=== PATIENT | female | born 1965 | race Caucasian/White ===

== ENCOUNTER 2025-04-24 17:39 | Emergency (ER) | payer OTHER, SELFPAY ==
[2025-04-24 17:52] VITALS: BP 177/80; PULSE 61; RESP 16; TEMP 35.9; O2SAT 96; BMI 30.7
--- NOTE | 2025-04-24 18:35 | ED.GENADULT ---
HPI - General Adult General Date Seen: 04/24/25 Chief complaint: Dental/Oral/Mouth Injury/Pain Stated complaint: tooth pain Time Seen by Provider: 04/24/25 18:29 History of Present Illness HPI narrative: 59-year-old female presenting for dental pain affecting her right. She has been having dental pain for the past several days and has an appointment to have a root canal done in 2 days, on on Saturday. She has been trying to manage her pain with alternating doses of Tylenol ibuprofen, but today her pain got worse and then those medications are no longer adequate. She has been working at with an adult daughters and has already had 1st procedure on couple of her teeth with some dental implants. She has an appointment in 2 days, on Saturday to get root canals. She notes that since yesterday her pain just been a lot worse of the molars on both her right upper and lower jaw. She does not have any facial swelling or jaw swelling. No swelling inside of her mouth. No drainage. No known injury. No fever. No sore throat. No trouble swallowing. She came here to the ER desiring stronger pain meds because her a Tylenol and ibuprofen just are not helping. She has no history of diabetes or immunosuppression. Related Data Home Medications ?Medication ?Instructions ?Recorded ?Confirmed escitalopram oxalate .ROUTE 04/24/25 Allergies Allergy/AdvReac Type Severity Reaction Status Date / Time No Known Drug Allergies Allergy Verified 04/24/25 17:55 Exam Narrative: Exam Narrative: Constitutional: Appears well-developed and well-nourished. Alert. Conversant. Non toxic. HENT: Head: Atraumatic. Nose: Nose normal. Mouth/Throat: Oral mucosa is clear . Mucous membranes are moist. no trismus. Pharynx normal. Tonsils symmetric. No tonsillar enlargement, erythema, or exudate. No trismus. No submandibular swelling. She has feelings and multiple other of her molars. I do not see any gingival erythema or swelling around her molars on the maxillary or mandibular right side or on the left side. No submandibular swelling. No signs of gingival abscess. No submandibular infection. No facial swelling or buccal space abscess. No trismus. Eyes: Conjunctivae normal. EOM normal. Pupils equal, round, and reactive to light. No scleral icterus. Neck: Normal range of motion. Neck supple. No tracheal deviation present. Cardiovascular: Normal rate, regular rhythm. Normal cap refill Pulmonary/Chest: Effort normal. No stridor. No respiratory distress. No wheezes. No rales. No rhonchi . Musculoskeletal: RUE: Normal range of motion. No tenderness. No deformity LUE: Normal range of motion. No tenderness. No deformity RLE: Normal range of motion. No edema. No tenderness. No deformity LLE: Normal range of motion. No edema. No tenderness. No deformity Lymph: No cervical adenopathy. Neurological: Alert and oriented to person, place, and time. Normal strength. CN II-VII intact. No sensory deficit. GCS eye subscore is 4. GCS verbal subscore is 5. GCS motor subscore is 6. Normal coordination Skin: Skin is warm and dry. No rash noted. No pallor. Normal capillary refill. Psychiatric: Normal mood. Normal affect. Const: Vital Signs, click to edit/add: Vital Signs - 24 hr 04/24/25 17:52 Temperature 96.6 F L Pulse Rate [Pulse Oximeter] 61 Respiratory Rate 16 Blood Pressure [Ri ght Upper Arm] 177/80 H Pulse Oximetry 96 Oxygen Delivery Me thod Room Air Course Vital Signs Vital signs: Initial Vital Signs Temperature 96.6 F L 04/24/25 17:52 Temperature Source Temporal Artery Scan 04/24/25 17:52 Pulse Rate 61 04/24/25 17:52 Respiratory Rate 16 04/24/25 17:52 Blood Pressure 177/80 H 04/24/25 17:52 Blood Pressure Mean 112 H 04/24/25 17:52 Blood Pressure Position Sitting 04/24/25 17:52 Pulse Oximetry 96 04/24/25 17:52 Oxygen Delivery Method Room Air 04/24/25 17:52 Vital Signs Temperature 96.6 F L 04/24/25 17:52 Pulse Rate 61 04/24/25 17:52 Respiratory Rate 16 04/24/25 17:52 Blood Pressure 177/80 H 04/24/25 17:52 Pulse Oximetry 96 04/24/25 17:52 Oxygen Delivery Method Room Air 04/24/25 17:52 Temperature 96.6 F L 04/24/25 17:52 Pulse Rate 61 04/24/25 17:52 Respiratory Rate 16 04/24/25 17:52 Blood Pressure 177/80 H 04/24/25 17:52 Pulse Oximetry 96 04/24/25 17:52 Oxygen Delivery Method Room Air 04/24/25 17:52 Medical Decision Making MDM Narrative Medical decision making narrative: This patient presents with a tooth ache. The differential diagnosis includes: cracked tooth syndrome, pulpitis, sub-apical abscess, amongst others. There is no abscess detected around the tooth amenable to incision and drainage. There is no evidence of buccinator/canine space infections, significant facial swelling, or Samuel's angina. There are no posterior pharyngeal space infections detected. Suspect pulpitis. Treatment with NSAID, antibiotics. Follow up with a dentist/swatch folder in the coming days is indicated for further work up and treatment. She indicates that she already has an appointment for an root canal on Saturday. Instructions for return to the ER were reviewed with the patient. Instymeds prescription for amoxicillin 1000 mg p.o. b.i.d. for 10 days. Instymeds prescription for Percocet-10 tablets. Opiate precautions reviewed Discharge Plan Discharge Clinical Impression: Pain, dental, Jaw pain, non-TMJ Patient Disposition: Home, Self-Care Condition: Stable Instructions: Toothache (ED) Additional Instructions: As we discussed, please come back to the ER right away if you have worsening or severe pain, swelling your face around her jaw, high fever. It is very important for you to see your and dentist on Saturday for recheck. Please start on the antibiotics today to try to help prevent any worsening infection. Take the antibiotic (amoxicillin) twice a day for 10 days or until your and dentist cause you to stop. For pain control you should continue use Tylenol and ibuprofen 1st. Use the prescription pain killer (Percocet) if needed. Use caution, because prescription pain killers can cause dizziness, drowsiness, constipation, and can be addictive. Do not drive for 6 hours after taking a prescription pain killer. Prescriptions: No Action escitalopram oxalate .ROUTE Stand Alone Forms: [employer] Info Instructions
--- OUTSIDE RECORDS SUMMARY | 2025-04-24 19:19 | XMS_ITS | Encounter Summary ---
Author Organization [facility] Address [address] [place] [address]. [place] [address] Care Team Providers Care Head Of English Name Role Phone Tammy Trinh PA-C Unavailable [phone] Tammy Trinh PA-C Primary Care Provider [phone] Tino Vincent MD Unavailable Encounter Details DateTypeDepartmentCare Team (Latest Contact Info)Zogcmceddyf63/02/2025Travel Social History Tobacco UseTypesPacks/DayYears UsedDateSmoking Tobacco: NeverPassive Smoke Exposure: NeverSmokeless Tobacco: NeverAlcohol UseStandard Drinks/WeekComments Yes0 (1 standard drink = 0.6 oz pure alcohol)1-2 drinks a week.PHQ-2AnswerDate RecordedPHQ-2 Wyuum43505/31/2024[facility] [place] [facility] - Occupational Stress QuestionnaireAnswerDate RecordedDo you feel stress - tense, restless, nervous, or anxious, or unable to sleep at night because yourmind is troubled all the time - these days?Only a oswtte3003/30/2025Exercise Vital Sign AnswerDate RecordedOn average, how many days per week do you engage in moderate to strenuous exercise (like a brisk walk)?2 days03/30/2025On average, how many minutes do you engage in exercise at this level?10 min03/30/2025dolescent EducationAnswerDate RecordedGetting School Help NeededNot on file02/10/2023 Social ConnectionsAnswerDate RecordedHow often do you feel lonely or isolated from those around you?Tvollunwh17/02/2025Food InsecurityAnswerDate Recorded Within the past 12 months, did you worry that your food would run out before you got money to buy more?No03/30/2025Within the past 12 months, did the food you bought just not last and you didn???t have money to getmore?No03/30/2025Housing StabilityAnswerDate RecordedDo you have housing? (Housing is defined as stable permanent housing and does not include staying outside in a car, in a tent, in an abandoned building, in an overnight senior care, or couch-surfing.)Yes03/30/2025 Are you worried about losing your housing?No03/30/2025Financial Resource Strain AnswerDate RecordedWithin the past 12 months, have you or your family members you live with been unable to get utilities (heat, electricity) when it was really needed?No03/30/2025Transportation NeedsAnswerDate RecordedWithin the past 12 months, has lack of transportation kept you from medical appointments, getting your medicines, non-medical meetings or appointments, work, or from getting things that you need?No03/30/2025Interpersonal SafetyAnswerDate Recorded Do you feel physically and emotionally safe where you currently live?Yes 03/25/2024Within the past 12 months, have you been hit, slapped, kicked or otherwise physically hurt by someone?No03/25/2024Within the past 12 months, have you been humiliated or emotionally abused in other ways by your partner or ex-partner?No03/25/2024CommentsNoSex and Gender InformationValueDate RecordedSex Assigned at BirthNot on fileLegal DtjVbiysj02/04/2012 3:09 AM ENTRY LEVEL ACCOUNT MANAGER Gender IdentityNot on fileSexual OrientationNot on fileOccupationIndustryJob Start DateJob End DateProject ManagerNot on fileNot on fileNot on filedocumented as of this encounter Plan of Treatment DateTypeDepartmentCare Team (Latest Contact Info)Lbjqykpjrkt45/16/2026 7:30 AM CSTOffice Visit [facility] [address] [place] [address] Tammy Trinh PA-C [address] [place] [address] documented as of this encounter Visit Diagnoses Not on filedocumented in this encounter Additional Health Concerns AssessmentNoted TimePHQ-9 Depression Total Score: 9:57 AM ENTRY LEVEL ACCOUNT MANAGER documented as of this encounter Care Teams Team MemberRelationshipSpecialtyStart DateEnd Date Tammy Trinh PA-C [address] [place] [address] PCP - GeneralFamily Medicine08/08/22 Tammy Trinh PA-C [address] [place] [address] Assigned PCP07/07/22 Tino Vincent MD [address] [place] [id number] JQSawycvanwhr98/31/23documented as of this encounter
--- OUTSIDE RECORDS SUMMARY | 2025-04-24 19:19 | XMS_ITS | Clinical Summary ---
Author Organization [facility] Address [address] [place] [address] Care Team Providers Care Waste Collector Name Role Phone Tammy Trinh PA-C Unavailable [phone] Tammy Trinh PA-C Primary Care Provider [phone] Tino Vincent MD Unavailable Allergies No known active allergies Medications MedicationSigDispense QuantityRefillsLast FilledStart DateEnd DateStatus Cholecalciferol (VITAMIN D) 400 UNITS capsule Take by mouth daily 30 capsule 12/01/2014ctive Ascorbic Acid (VITAMIN C) 500 MG CHEW Active zinc gluconate 50 MG tablet Take 50 mg by mouth dailyActive fish oil-omega-3 fatty acids 1000 MG capsule Take 2 g by mouth dailyActive MAGNESIUM GLYCINATE PLUS PO Active vitamin (B COMPLEX-C) tablet Take 1 tablet by mouth dailyActive multivitamin w/minerals (THERA-VIT-M) tablet Take 1 tablet by mouth dailyActive escitalopram (LEXAPRO) 20 MG tablet Indications:Generalized anxiety disorder,Moderate episode of recurrent major depressive disorder (H)Take 1 tablet (20 mg) by mouth daily. 90 tablet ctive acyclovir (ZOVIRAX) 200 MG capsule Indications:Herpes simplex vulvovaginitisTake 1 capsule (200 mg) by mouth daily 90 capsule /iscontinued Active Problems ProblemNoted DateDiagnosed DatePrimary nxvqdmqa45/02/2024 Assessment & Plan (08/29/2023 2:59 PM CDT): He has trouble sleeping and is tired in the day. This is worse now but predates her current illness. Discussed. [employer] database. Refer Elevated fasting vbwbljp7702/27/2023 Overview (02/27/2023): 02/26/23: glucose 109 Generalized anxiety mtfiocca47/07/2023Moderate episode of recurrent major depressive fiuviyyb00/10/2023CP (advance care planning)02/09/2020Herpes owpuuotei03/05/2015 Resolved Problems ProblemNoted DateDiagnosed DateResolved PuwlMbsgkfazpd53 Assessment & Plan (08/29/2023 2:59 PM CDT): She has had bronchitis before. Discussed differential. [employer] database. PFTs approximately 1 monthhence when I anticipate her current infection to be back to baseline Oramvvbnusr49 Assessment & Plan (08/29/2023 3:00 PM CDT): Worse with current illness. Refer Flu-like dvbxahik95 Assessment & Plan (08/20/2023 9:52 PM CDT): Flu swabs negative Sore eqdpdx59 Assessment & Plan (08/20/2023 9:53 PM CDT): Not strep by Centor criteria Pneumonia of left lower lobe due to infectious afgwcrex94 Assessment & Plan (08/29/2023 2:59 PM CDT): Treated for radiographically demonstrated pneumonia. Cough is improved no further fevers chest painis improved she still has great fatigue. Discussed. Anticipate continuation of symptoms for up to 6weeks. Entire symptom complex suggests a viral origin. Assessment & Plan (08/20/2023 9:53 PM CDT): By x-ray. Treat. Repeat x-ray 6 weeks Health Care HomeMild dffxwyuhoq74IUD (intrauterine device) in place Overview (01/17/2015): Mirena IUD placed 2011 Encounters DateTypeDepartmentCare IabvVtadidthvma03/02/1052Ucbsaz78/03/2025 3:30 PM CHECK WRITER Ancillary Procedure [facility] [address] [place] [phone] Tammy Trinh PA-C Visit for screening cvfqmoprp84/03/0817Vqsjfj11/31/2025 10:30 AM CDTLab [facility] [address] [place] [address] Yyvyhwh5402/26/2025Results Follow-Up [facility] [address] [phone] Murtaza Reeves MD Dx: Acute cystitis without hematuria (Primary Dx)02/26/20256623Ogiizk83/30/2025 9:05 AM CDTE-Visit [facility] [address] [phone] Janae Jerome PA-C UTI (Entered automatically based on patien...from Last 3 Months Immunizations ImmunizationAdministration DatesNext DueCOVID-19 MONOVALENT 12+ (Pfizer) 09/27/2020,08/19/2020Influenza Vaccine, 6+MO IM (QUADRIVALENT W/PRESERVATIVES) 03/08/2015TDAP (Adacel,Boostrix)02/26/2023 Family History Medical HistoryRelationCommentsDiabetesBrotherDiabetesFather 1Hyperlipidemia Father 1HypertensionFather 1PacemakerFather 1DementiaMaternal Grandmother DepressionMaternal GrandmotherDiabetesMother 1HyperlipidemiaMother 1Hypertension Mother 1Breast CancerNo family hx ofColon CancerNo family hx ofOvarian CancerNo family hx ofRelationStatusCommentsBrotherFather 1Father 2Maternal Grandmother Mother 1Mother 2 Social History Tobacco UseTypesPacks/DayYears UsedDateSmoking Tobacco: NeverPassive Smoke Exposure: NeverSmokeless Tobacco: Never Tobacco Cessation:Counseling Given: Not Answered Alcohol UseStandard Drinks/WeekCommentsYes0 (1 standard drink = 0.6 oz pure alcohol)1-2 drinks a week.PHQ-2AnswerDate RecordedPHQ-2 Iwabt97605/31/2024[facility] [place] [facility] - Occupational Stress QuestionnaireAnswerDate RecordedDo you feel stress - tense, restless, nervous, or anxious, or unable to sleep at night because yourmind is troubled all the time - these days?Only a zalaiw1203/30/2025Exercise Vital SignAnswerDate RecordedOn average, how many days per week do you engage in moderate to strenuous exercise (like a brisk walk)?2 days03/30/2025On average, how many minutes do you engage in exercise at this level?10 min03/30/2025dolescent EducationAnswerDate RecordedGetting School Help NeededNot on file02/10/2023Social ConnectionsAnswerDate RecordedHow often do you feel lonely or isolated from those around you?Aorfwmdht68/02/2025Food Insecurity AnswerDate RecordedWithin the past 12 months, did you worry that your food would run out before you got money to buy more?No03/30/2025Within the past 12 months, did the food you bought just not last and you didn???t have money to getmore?No 03/30/2025Housing StabilityAnswerDate RecordedDo you have housing? (Housing is defined as stable permanent housing and does not include staying outside in a car, in a tent, in an abandoned building, in an overnight residential, or couch-surfing.)Yes03/30/2025re you worried about losing your housing?No 03/30/2025Financial Resource StrainAnswerDate RecordedWithin the past 12 months, have you or your family members you live with been unable to get utilities (heat, electricity) when it was really needed?No03/30/2025Transportation Needs AnswerDate RecordedWithin the past 12 months, has lack of transportation kept you from medical appointments, getting your medicines, non-medical meetings or appointments, work, or from getting things that you need?No03/30/2025 Interpersonal SafetyAnswerDate RecordedDo you feel physically and emotionally safe where you currently live?Yes03/25/2024Within the past 12 months, have you been hit, slapped, kicked or otherwise physically hurt by someone?No03/25/2024 Within the past 12 months, have you been humiliated or emotionally abused in other ways by your partner or ex-partner?No03/25/2024CommentsNoSex and Gender InformationValueDate RecordedSex Assigned at BirthNot on fileLegal Sex Fvewte6203/02/2012 3:09 AM CSTGender IdentityNot on fileSexual OrientationNot on fileOccupationIndustryJob Start DateJob End DateProject ManagerNot on fileNot on fileNot on file Last Filed Vital Signs Vital SignReadingTime TakenCommentsBlood Pbuvywao649/8603/25/2024 12:50 PM CHECK WRITER ycvjihxynTpizj1873/27/2024 12:50 PM YLOQsjophkqmjz59.4 ??C (97.6 ??F)03/25/2024 12:50 PM CSTRespiratory Jykd633305/25/2023 12:50 PM CSTOxygen Rjhtcksjnn98% 03/25/2024 12:50 PM CSTInhaled Oxygen Concentration--Tivluk66.7 kg (200 lb) 03/25/2024 12:50 PM HAUUizvir902.5 cm (5' 6.75)03/25/2024 12:50 PM CSTBody Mass Index31.56105/25/2023 12:50 PM CHECK WRITER Plan of Treatment DateTypeDepartmentCare Team (Latest Contact Info)Aoqjsetwobk54/16/2026 7:30 AM CSTOffice Visit [facility] [address] [place] [phone] Tammy Trinh PA-C [address] [place] [address] Health MaintenanceDue DateLast DoneCommentsCT BUJJTVNBNOBH30/04/1968FIT 1967FLEX SIG1967sDNA (Cologuard)1967HEPATITIS B VACCINE (1 of 3 - 19+ 3-dose series)07/31/1986PNEUMOCOCCAL VACCINE 50+ YEARS (1 of 1 - PCV) 07/31/2017ZOSTER VACCINE (1 of 2)07/31/2017ANNUAL REVIEW OF HM PMSHNV3408/19/2024 08/20/2023, 06/05/2022OVID-19 VACCINE (2024- season)/04/2020, 08/19/2020INFLUENZA VACCINE (#1)/ (Declined), 03/08/2015 YEARLY PREVENTIVE VISIT/, 02/26/2023, 11/13/2021, Additional history existsPHQ-90//05/2024, 03/25/2024, 08/29/2023, Additional history existsDIABETES BMUVOHLGF59, 11/13/2021, 10/22/2002 MAMMO VNUTFSODN10/06/2024, 02/28/2024, 09/14/2022, Additional history existsHPV TEST/, 01/17/2015, 01/03/2012PAP11/13/2026 11/13/2021, 01/17/2015, 01/03/2012, Additional history pyvvuuASHKP69/31/2028 02/26/2023, 11/13/2021DVANCE CARE TSDWOHCM674COLONOSCOPY COLORECTAL CANCER ZANVJOXTF95/24/2030DTAP/TDAP/TD VACCINE (2 - Td or Tdap)3DEPRESSION ACTION XDSEIynqhywxz64/10/2022, 07/06/2021HEPATITIS C SCREENINGDiscontinuedHIV SCREENINGDiscontinuedHPV VACCINE (No Doses Required)CompletedMENINGITIS VACCINEAged OutNo longer eligible based on patient's age to complete this topic Procedures Procedure NamePriorityDate/TimeAssociated DiagnosisCommentsMA SCREENING BILATERAL W/ FKHPLfdetxz32/03/2025 3:27 PM CHECK WRITER Visit for screening mammogram URINE OYRMRDVWnbfweb57/31/2025 10:32 AM CDT Dysuria URINE MICROSCOPIC CKJKEtpyuai36/31/2025 10:32 AM CDT Dysuria UA MACROSCOPIC WITH REFLEX TO MICRO AND RUFRHTEBekwgog19/31/2025 10:32 AM CDT Dysuria PDWZUECYpcqxwy02/31/2023 10:34 AM CDT Screening for diabetes mellitus LIPID REFLEX TO DIRECT LDL RYSEBZmzmhtx11/31/2023 10:34 AM CDT Lipid screening THINPREP PAP AND HPV MRNA E6/E7 ([facility])Sofnhoa6211/13/2021 10:06 AM CDT Screening for malignant neoplasm of cervix COLONOSCOPY - HIM SCAN12/21/2019 12:00 AM CDTfrom Last 3 Months or Most Recently Relevant to Health Maintenance Results * MA Screen Bilateral w/Ariel (03/01/2025 3:27 PM CHECK WRITER)Anatomical RegionLaterality ModalityBreastBilateralMammographySpecimen (Source)Anatomical Location / LateralityCollection Method / VolumeCollection TimeReceived Time Impressions 03/02/2025 7:28 AM CHECK WRITER IMPRESSION: ACR BI-RADS Category 1: Negative BREAST CANCER SCREENING RECOMMENDATION: Routine yearly mammography beginning at age 40 or as discussed with your provider. The results and recommendations of this examination will be communicated to the patient. Ranjit Cardoso MD Narrative 03/02/2025 7:28 AM CHECK WRITER BILATERAL FULL FIELD DIGITAL SCREENING MAMMOGRAM WITH TOMOSYNTHESIS Performed on: 03/01/25 Compared to: 02/28/2024, 09/14/2022, and 01/23/2017 Technique: ??This study was evaluated with the assistance of Computer-Aided Detection. ??Breast Tomosynthesis was used in interpretation. Findings: Breast Density: Heterogeneously dense, which may obscure small masses. ??There is no radiographic evidence of malignancy. Authorizing ProviderResult TypeResult Statusjosue Sumner Ziggy [facility] MAMMOGRAPHY ORDERABLESFinal Result * (ABNORMAL) UA Macroscopic with reflex to Microscopic and Culture (02/26/2025 10:32 AM CDT)ComponentValueRef RangeTest MethodAnalysis TimePerformed At Pathologist SignatureColor UrineYellowColorless, Straw, Light Yellow, Yellow 02/26/2025 10:35 AM CDTRM LABORATORYAppearance UrineCloudy(A)Clear02/26/2025 10:35 AM CDTRM LABORATORYGlucose UrineNegativeNegative mg/dL02/26/2025 10:35 AM CDTRM LABORATORYBilirubin FvpijWluxfoqyGxkgetww76/31/2025 10:35 AM CDTRM LABORATORYKetones UrineTrace(A)Negative mg/dL02/26/2025 10:35 AM CDTRM LABORATORYSpecific [place] Urine1.0151.002 - 1.8735102/26/2025 10:35 AM CDTRM LABORATORYBlood UrineLarge(A)Rkhtpcoj80/31/2025 10:35 AM CDTRM LABORATORYpH Urine6.05.0 - 7.010 10:35 AM CDTRM LABORATORYProtein Albumin Qbnkt177 (A)Negative mg/dL02/26/2025 10:35 AM CDTRM LABORATORYUrobilinogen Urine0.20.2, 1.0 E.U./dL02/26/2025 10:35 AM CDTRM LABORATORYNitrite UrineNegativeNegative 02/26/2025 10:35 AM CDTRM LABORATORYLeukocyte Esterase UrineLarge(A)Negative 02/26/2025 10:35 AM CDTRM LABORATORYSpecimen (Source)Anatomical Location / LateralityCollection Method / VolumeCollection TimeReceived TimeUrineURINE SPECIMEN OBTAINED BY CLEAN CATCH PROCEDURE / UnknownNon-blood Collection / Oghoxkj9802/26/2025 10:32 AM CDT1 10:32 AM CDT Narrative Authorizing ProviderResult TypeResult StatusRebecca A Jungers PA-CLAB - URINE ORDERABLESFinal ResultPerforming OrganizationAddressCity/State/ZIP CodePhone Number LABORATORY [facility] [address] [facility] (no room number, 1st floor of [facility]) [place] [address], [facility] * (ABNORMAL) Urine Microscopic Exam (02/26/2025 10:32 AM CDT)ComponentValueRef RangeTest MethodAnalysis TimePerformed AtPathologist SignatureBacteria Urine Moderate(A)None Seen /HPF BISHNU 02/26/2025 10:37 AM CDTRM LABORATORYRBC Dzzhx07-35(A)0-2 /HPF /HPF BISHNU 02/26/2025 10:37 AM CDTRM LABORATORYWBC Urine>100(A)0-5 /HPF /HPF BISHNU 02/26/2025 10:37 AM CDTRM LABORATORYSquamous Epithelials UrineFew(A)None Seen /LPF BISHNU 02/26/2025 10:37 AM CDTRM LABORATORYSpecimen (Source)Anatomical Location / LateralityCollection Method / VolumeCollection TimeReceived TimeUrineURINE SPECIMEN OBTAINED BY CLEAN CATCH PROCEDURE / UnknownNon-blood Collection / Aadbhij7902/26/2025 10:32 AM CDT1 10:32 AM CDT Narrative Authorizing ProviderResult TypeResult StatusRebecca A Jungers PA-CLAB - URINE ORDERABLESFinal ResultPerforming OrganizationAddressCity/State/ZIP CodePhone Number LABORATORY [facility] [address] [facility] (no room number, 1st floor of [facility]) [place] [address], [place] * (ABNORMAL) Urine Culture (02/26/2025 10:32 AM CDT)ComponentValueRef RangeTest MethodAnalysis TimePerformed AtPathologist SignatureCulture>100,000 CFU/mL Escherichia coli(A)02/28/2025 12:11 AM CDTUU IDD LABORATORYSpecimen (Source) Anatomical Location / LateralityCollection Method / VolumeCollection Time Received TimeUrineURINE SPECIMEN OBTAINED BY CLEAN CATCH PROCEDURE / Unknown Non-blood Collection / Nifokfg8502/26/2025 10:32 AM CDT1 10:35 AM CDT Narrative OrganismAntibioticMethodSusceptibilityEscherichia coliAmpicillinMIC >=32 ug/mL: Resistant Escherichia coliAmpicillin/ SulbactamMIC >=32 ug/mL: Resistant Escherichia coliPiperacillin/TazobactamMIC 8 ug/mL: Susceptible Escherichia coliCefazolinMIC 4 ug/mL: Susceptible Escherichia coliCeftazidimeMIC <=0.5 ug/mL: Susceptible Escherichia coliCeftriaxoneMIC <=0.25 ug/mL: Susceptible Escherichia coliCefepimeMIC <=0.12 ug/mL: Susceptible Escherichia coliGentamicinMIC >=16 ug/mL: Resistant Escherichia coliCiprofloxacinMIC <=0.06 ug/mL: Susceptible Escherichia coliLevofloxacinMIC <=0.12 ug/mL: Susceptible Escherichia coliNitrofurantoinMIC <=16 ug/mL: Susceptible Escherichia coliTrimethoprim/SulfamethoxazoleMIC >16/304 ug/mL: Resistant Authorizing ProviderResult TypeResult StatusRebecca Stefani Jerome PA-CLAB - MICRO GENERAL ORDERABLESFinal ResultPerforming OrganizationAddressCity/State/ZIP Code Phone Number UU IDD LABORATORY [facility] Inf. Diseases Diag. Lab [address] [facility], [address] [place] [phone] * (ABNORMAL) Lipid panel reflex to direct LDL Fasting (02/26/2023 10:34 AM CDT) ComponentValueRef RangeTest MethodAnalysis TimePerformed AtPathologist IrrxlnkgvMadnnptlpgr522(H)<200 mg/dL02/26/2023 6:25 PM CDTUU LABORATORY Jrwoccfakwzrs538(H)<150 mg/dL02/26/2023 6:25 PM CDTUU LABORATORYDirect Measure HDL36(L)>=50 mg/dL02/26/2023 6:25 PM CDTUU LABORATORYLDL Cholesterol Crignkwzos832(H)<=100 mg/dL02/26/2023 6:25 PM CDTUU LABORATORYNon HDL Vinahyzlqhk223(H)<130 mg/dL02/26/2023 6:25 PM CDTUU LABORATORYSpecimen (Source)Anatomical Location / LateralityCollection Method / VolumeCollection TimeReceived TimeBloodBLOOD SPECIMEN / UnknownVenipuncture / Saswupv2102/26/2023 10:34 AM CDT1 10:34 AM CDT Narrative LABORATORY - 02/26/2023 6:25 PM CDT Cholesterol Desirable: <200 mg/dL Triglycerides Normal: ??Less than 150 mg/dL Borderline High: ??150-199 mg/dL High: ??200-499 mg/dL Very High: ??Greater than or equal to 500 mg/dL Direct Measure HDL Female: ??Greater than or equal to 50 mg/dL Male: ??Greater than or equal to 40 mg/dL LDL Cholesterol Desirable: <100mg/dL Above Desirable: ??100-129 mg/dL Borderline High: ??130-159 mg/dL High: ??160-189 mg/dL Very High: >= 190 mg/dL Non HDL Cholesterol Desirable: ??130 mg/dL Above Desirable: ??130-159 mg/dL Borderline High: ??160-189 mg/dL High: ??190-219 mg/dL Very High: ??Greater than or equal to 220 mg/dL Authorizing ProviderResult TypeResult StatusTammy RDZ-CLAB - BLOOD ORDERABLESFinal ResultPerforming OrganizationAddressCity/State/ZIP CodePhone Number LABORATORY [facility] [address] [facility], [address] [phone] [phone] * (ABNORMAL) Glucose (02/26/2023 10:34 AM CDT)ComponentValueRef RangeTest Method Analysis TimePerformed AtPathologist GestbioyaEkjapah997(H)70 - 99 mg/dL 02/26/2023 6:25 PM CDTUU LABORATORYPatient Fasting > 8hrs?Yes02/26/2023 6:25 PM CDTUU LABORATORYSpecimen (Source)Anatomical Location / LateralityCollection Method / VolumeCollection TimeReceived TimeBloodBLOOD SPECIMEN / Unknown Venipuncture / Ummjwhx4402/26/2023 10:34 AM CDT1 10:34 AM CDT Narrative Authorizing ProviderResult TypeResult StatusTammy Trinh PA-CLAB - BLOOD ORDERABLESFinal ResultPerforming OrganizationAddressCity/State/ZIP CodePhone Number UU LABORATORY [facility] [place] [facility] [address] [facility], [address] [place] [address], [place] [phone] * ThinPrep Pap and HPV (mRNa E6/E7) {HPV always run}(uTrail me) (11/13/2021 10:06 AM CDT)ComponentValueRef RangeTest MethodAnalysis TimePerformed AtPathologist SignatureClinical HistorySEE COMMENTQUEST DIAGNOSTICS-WOODALEComment:SCREENING LMPSEE COMMENTQUEST DIAGNOSTICS-WOODALEComment:PMLast Pap DiagnosisSEE COMMENT [facility]ODALEComment:[id number] Bx DxSEE COMMENTQUEST DIAGNOSTICS-WOODALEComment:[id number] COMMENTQUEST DIAGNOSTICS-[facility] Comment:CervixStatement of AdequacySEE COMMENTQUEST DIAG[facility] Comment: Satisfactory for evaluation. Endocervical/transformation zone component present. Descriptive DiagnosisSEE COMMENTQUEST DIAGNOSTICS-TryolabsALEComment:Negative for intraepithelial lesion or malignancy.Light Rail Transit Operator:SEE COMMENTQUEST DIAGNOSTICS-WOODALEComment: SXO CT(ASCP) CT Screening location: [address] ??[address] CommentSEE COMMENTQUEST DIAGNOSTICS-WOODALEComment: EXPLANATORY NOTE: The Pap is a screening test for cervical cancer. It is not a diagnostic test and is subject to false negative and false positive results. It is most reliable when a satisfactory sample, regularly obtained, is submitted with relevant clinical findings and history, and when the Pap result is evaluated along with historic and current clinical information. HPV mRNA E6/E7Not DetectedNot DetectedQUEST DIAGNOSTICS-WOODALEComment: Methodology: Radiologic Electronic Specialist-Mediated Amplification This assay detects E6/E7 viral messenger RNA (mRNA) from 14 high-risk HPV types (16,18,31,33,35,39,45,51,52,56,58,59,66,68). Cervical sources are required for HPV testing. If a vaginal source from a patient who has had a total hysterectomy with removal of cervix was submitted, please contact the testing laboratory for alternative testing options. For additional information, please refer to http://education.[employer]/faq/KCT374z5 (This link if provided for information/ educational purposes only.) Specimen (Source)Anatomical Location / LateralityCollection Method / Volume Collection TimeReceived BowfZvitgiqb73/18/2022 10:06 AM CDT11/14/2021 6:34 AM CDT Narrative Resulting Agency Comment Performing Organization Information: ? [place] ? [facility] ? [address] [place] [address] ? Renan Mathur Authorizing ProviderResult TypeResult StatusRenetta Womack MDLAB - NON-BEAKER NON-BLOODFinal ResultPerforming OrganizationAddressCity/State/ZIP CodePhone Number [facility] [address] [place], [place] [address] [phone] * COLONOSCOPY - HIM SCAN (12/21/2019 12:00 AM CDT)Specimen (Source)Anatomical Location / LateralityCollection Method / VolumeCollection TimeReceived Time 12/21/2019 Narrative Authorizing ProviderResult TypeResult StatusProvider OutsidePROCEDURESFinal Result from Last 3 Months or Most Recently Relevant to Health Maintenance Insurance Care Teams Team MemberRelationshipSpecialtyStart DateEnd Date Tammy Trinh PA-C [address] [place] [address] [facility] - [facility] Tammy Trinh PA-C [address] [place] [address] Assigned PCP07/07/22 Tino Vincent MD [address] [place] [address] EDDybckvbjsxp18/31/23
--- OUTSIDE RECORDS SUMMARY | 2025-04-24 19:19 | XMS_ITS | Clinical Summary ---
Author Organization [facility] Address [address] [place] [address] Care Team Providers Care Excavation Laborer Name Role Phone Rima Fajardo Primary Care Provider Immunizations ImmunizationAdministration DatesNext DueCOVID-19 vaccine ([email or web address] 30mcg/0.3mL) SHERWIN HWANG09/27/2020,08/19/2020 Social History Tobacco UseTypesPacks/DayYears UsedDateSmoking Tobacco: Never Assessed CommentsUnknownSex and Gender InformationValueDate RecordedSex Assigned at Not on fileLegal WsxVtohvt47/14/2013 6:28 AM CSTGender IdentityNot on fileSexual OrientationNot on file Plan of Treatment Not on file Care Teams Team MemberRelationshipSpecialtyStart DateEnd Date Rima Fajardo PCP - GeneralFamily Practice09/09/20
[2025-04-24 19:24] VITALS: BP 155/70; PULSE 65; RESP 16; TEMP 36.7; O2SAT 96
--- OUTSIDE RECORDS SUMMARY | 2025-04-25 03:02 | XMS_ITS | Clinical Summary ---
Author Organization [facility] Address [address] [place] [address] Care Team Providers Care Chemical Instrumentation Officer Name Role Phone Tammy Trinh PA-C Unavailable [phone] Tammy Trinh PA-C Primary Care Provider [phone] Tino Vincent MD Unavailable Allergies No known [...] capsule /iscontinued Active Problems ProblemNoted DateDiagnosed DatePrimary boznaxam16/02/2024 Assessment & Plan (08/29/2023 2:59 PM CDT): He has trouble sleeping and is tired in the day. This is worse now but predates her current illness. Discussed. [facility] database. Refer Elevated fasting ppcdbbt9002/27/2023 Overview (02/27/2023): 02/26/23: glucose 109 Generalized anxiety cwjqsvok69/07/2023Moderate episode of recurrent major depressive tvcrzquj26/10/2023CP (advance care planning)02/09/2020Herpes binheznlb96/05/2015 Resolved Problems ProblemNoted DateDiagnosed DateResolved XepyVjgixbepgj70 Assessment & Plan (08/29/2023 2:59 PM CDT): She has had bronchitis before. Discussed differential. [facility] database. PFTs approximately 1 monthhence when I anticipate her current infection to be back to baseline Najsdyixbhb26 Assessment & Plan (08/29/2023 3:00 PM CDT): Worse with current illness. Refer Flu-like bmwmymms34 Assessment & Plan (08/20/2023 9:52 PM CDT): Flu swabs negative Sore mijaox82 Assessment & Plan (08/20/2023 9:53 PM CDT): Not strep by [facility] criteria Pneumonia of left lower lobe due to infectious flybtmfg72 Assessment & Plan (08/29/2023 2:59 PM CDT): Treated for radiographically demonstrated pneumonia. Cough is improved no further fevers chest painis improved she still has great fatigue. Discussed. Anticipate continuation of symptoms for up to 6weeks. Entire symptom complex suggests a viral origin. Assessment & Plan (08/20/2023 9:53 PM CDT): By x-ray. Treat. Repeat x-ray 6 weeks Health Care HomeMild mvgxcqnvkb78IUD (intrauterine device) in place Overview (01/17/2015): Mirena IUD placed 2011 Encounters DateTypeDepartmentCare AibeDckxjimawkb96/02/1713Vgswka64/03/2025 3:30 PM ELEMENTARY SCHOOL DIRECTOR Ancillary Procedure [facility] [address] [place] [phone] Tammy Trihn PA-C Visit for screening ijqnjiuuo33/03/9708Dzjcnd54/31/2025 10:30 AM CDTLab [facility] [address] [place] [address] Seahjjt5602/26/2025Results Follow-Up [facility] [address] [phone] Murtaza Reeves MD Dx: Acute cystitis without hematuria (Primary Dx)02/26/20253430Ksadvg23/30/2025 9:05 AM CDTE-Visit [facility] [address] [phone] Janae Jerome PA-C UTI (Entered automatically based [...] oz pure alcohol)1-2 drinks a week.PHQ-2AnswerDate RecordedPHQ-2 Bogmw26105/31/2024Finalta [facility] of Occupational Health - Occupational Stress QuestionnaireAnswerDate RecordedDo you feel stress - tense, restless, nervous, or anxious, or unable to sleep at night because yourmind is troubled all the time - these days?Only a fuacqz8703/30/2025Exercise Vital SignAnswerDate RecordedOn average, how many days per week do you engage in moderate to strenuous exercise (like a brisk walk)?2 days03/30/2025On average, how many minutes do you engage in exercise at this level?10 min03/30/2025dolescent EducationAnswerDate RecordedGetting School Help NeededNot on file02/10/2023Social ConnectionsAnswerDate RecordedHow often do you feel lonely or isolated from those around you?Phyxugyjq24/02/2025Food Insecurity AnswerDate RecordedWithin the past 12 months, [...] RecordedSex Assigned at BirthNot on fileLegal Sex Elmicu3603/02/2012 3:09 AM CSTGender IdentityNot on fileSexual OrientationNot on fileOccupationIndustryJob Start DateJob End DateProject ManagerNot on fileNot on fileNot on file Last Filed Vital Signs Vital SignReadingTime TakenCommentsBlood Ndrtqqiw658/8603/25/2024 12:50 PM ELEMENTARY SCHOOL DIRECTOR tpeucyatkUbirr1056/27/2024 12:50 PM VXAIzjhlmoxaco10.4 ??C (97.6 ??F)03/25/2024 12:50 PM CSTRespiratory Chuh111305/25/2023 12:50 PM CSTOxygen Vtyitumbqi14% 03/25/2024 12:50 PM CSTInhaled Oxygen Concentration--Ydvfbj53.7 kg (200 lb) 03/25/2024 12:50 PM LMVJtxsri486.5 cm (5' 6.75)03/25/2024 12:50 PM CSTBody Mass Index31.56105/25/2023 12:50 PM ELEMENTARY SCHOOL DIRECTOR Plan of Treatment DateTypeDepartmentCare Team (Latest Contact Info)Qcsixysjwqq41/16/2026 7:30 AM CSTOffice Visit [facility] [address] [place] [address] Tammy Trinh PA-C [address] [place] [address] Health MaintenanceDue DateLast DoneCommentsCT YFEMPAGCCBBB82/04/1968FIT 1967FLEX SIG1967sDNA (Cologuard)1967HEPATITIS B VACCINE (1 of 3 - 19+ 3-dose series)07/31/1986PNEUMOCOCCAL VACCINE 50+ YEARS (1 of 1 - PCV) 07/31/2017ZOSTER VACCINE (1 of 2)07/31/2017ANNUAL REVIEW OF HM YXUHGB7208/19/2024 08/20/2023, 06/05/2022OVID-19 VACCINE (2024- season)/04/2020, 08/19/2020INFLUENZA VACCINE (#1)/ (Declined), 03/08/2015 YEARLY PREVENTIVE VISIT/, 02/26/2023, 11/13/2021, Additional history existsPHQ-90//05/2024, 03/25/2024, 08/29/2023, Additional history existsDIABETES POQKFNGBM19, 11/13/2021, 10/22/2002 MAMMO YPKQBKJMQ19/06/2024, 02/28/2024, 09/14/2022, Additional history existsHPV TEST/, 01/17/2015, 01/03/2012PAP11/13/2026 11/13/2021, 01/17/2015, 01/03/2012, Additional history xsmbjqHMZSB56/31/2028 02/26/2023, 11/13/2021DVANCE CARE GJHWQAVU184COLONOSCOPY COLORECTAL CANCER ASRMUQNRH32/24/2030DTAP/TDAP/TD VACCINE (2 - Td or Tdap)3DEPRESSION ACTION YSZZImgbwjsop99/10/2022, 07/06/2021HEPATITIS C SCREENINGDiscontinuedHIV SCREENINGDiscontinuedHPV VACCINE (No Doses Required)CompletedMENINGITIS VACCINEAged OutNo longer eligible based on patient's age to complete this topic Procedures Procedure NamePriorityDate/TimeAssociated DiagnosisCommentsMA SCREENING BILATERAL W/ MKVEEpwiccj21/03/2025 3:27 PM ELEMENTARY SCHOOL DIRECTOR Visit for screening mammogram URINE IWDKDUFMjejfnh22/31/2025 10:32 AM CDT Dysuria URINE MICROSCOPIC XPGYPbsxhhk93/31/2025 10:32 AM CDT Dysuria UA MACROSCOPIC WITH REFLEX TO MICRO AND QRLVWGWWgthrcf29/31/2025 10:32 AM CDT Dysuria GQBFLVBNdrxuys97/31/2023 10:34 AM CDT Screening for diabetes mellitus LIPID REFLEX TO DIRECT LDL EGTTEEowkzin97/31/2023 10:34 AM CDT Lipid screening THINPREP PAP AND HPV MRNA E6/E7 ([facility])Shmymop5211/13/2021 10:06 AM CDT Screening for malignant neoplasm of cervix COLONOSCOPY - HIM SCAN12/21/2019 12:00 AM CDTfrom Last 3 Months or Most Recently Relevant to Health Maintenance Results * MA Screen Bilateral w/Ariel (03/01/2025 3:27 PM ELEMENTARY SCHOOL DIRECTOR)Anatomical RegionLaterality ModalityBreastBilateralMammographySpecimen (Source)Anatomical Location / LateralityCollection Method / VolumeCollection TimeReceived Time Impressions 03/02/2025 7:28 AM ELEMENTARY SCHOOL DIRECTOR IMPRESSION: ACR BI-RADS Category 1: Negative BREAST CANCER SCREENING RECOMMENDATION: Routine yearly mammography beginning at age 40 or as discussed with your provider. The results and recommendations of this examination will be communicated to the patient. Ranjit Cardoso MD Narrative 03/02/2025 7:28 AM ELEMENTARY SCHOOL DIRECTOR BILATERAL FULL FIELD DIGITAL SCREENING MAMMOGRAM WITH TOMOSYNTHESIS Performed on: 03/01/25 Compared to: 02/28/2024, 09/14/2022, and 01/23/2017 Technique: ??This study was evaluated with the assistance of Computer-Aided Detection. ??Breast Tomosynthesis was used in interpretation. Findings: Breast Density: Heterogeneously dense, which may obscure small masses. ??There is no radiographic evidence of malignancy. Authorizing ProviderResult TypeResult Statusjosue Sumner Ziggy [facility] MAMMOGRAPHY ORDERABLESFinal Result * (ABNORMAL) UA Macroscopic with reflex to Microscopic and Culture (02/26/2025 10:32 AM CDT)ComponentValueRef RangeTest MethodAnalysis TimePerformed At Pathologist SignatureColor UrineYellowColorless, Straw, Light Yellow, Yellow 02/26/2025 10:35 AM CDTRM LABORATORYAppearance UrineCloudy(A)Clear02/26/2025 10:35 AM CDTRM LABORATORYGlucose UrineNegativeNegative mg/dL02/26/2025 10:35 AM CDTRM LABORATORYBilirubin TcxuyZszzylhdLlkdeibq81/31/2025 10:35 AM CDTRM LABORATORYKetones UrineTrace(A)Negative mg/dL02/26/2025 10:35 AM CDTRM LABORATORYSpecific [place] Urine1.0151.002 - 1.7702702/26/2025 10:35 AM CDTRM LABORATORYBlood UrineLarge(A)Ucnpswup35/31/2025 10:35 AM CDTRM LABORATORYpH Urine6.05.0 - 7.010 10:35 AM CDTRM LABORATORYProtein Albumin Erdqt646 (A)Negative mg/dL02/26/2025 10:35 AM CDTRM LABORATORYUrobilinogen Urine0.20.2, 1.0 E.U./dL02/26/2025 10:35 AM CDTRM LABORATORYNitrite UrineNegativeNegative 02/26/2025 10:35 AM CDTRM LABORATORYLeukocyte Esterase UrineLarge(A)Negative 02/26/2025 10:35 AM CDTRM LABORATORYSpecimen (Source)Anatomical Location / LateralityCollection Method / VolumeCollection TimeReceived TimeUrineURINE SPECIMEN OBTAINED BY CLEAN CATCH PROCEDURE / UnknownNon-blood Collection / Cupltjk3102/26/2025 10:32 AM CDT1 10:32 AM CDT Narrative Authorizing ProviderResult TypeResult StatusRebecca A Jungers PA-CLAB - URINE ORDERABLESFinal ResultPerforming OrganizationAddressCity/State/ZIP CodePhone Number LABORATORY [facility] [address] [facility] (no room number, 1st floor of [facility]) [place] [address], [facility] * (ABNORMAL) Urine Microscopic Exam (02/26/2025 10:32 AM CDT)ComponentValueRef RangeTest MethodAnalysis TimePerformed AtPathologist SignatureBacteria Urine Moderate(A)None Seen /HPF BISHNU 02/26/2025 10:37 AM CDTRM LABORATORYRBC Erkxk41-36(A)0-2 /HPF /HPF BISHNU 02/26/2025 10:37 AM CDTRM LABORATORYWBC Urine>100(A)0-5 /HPF /HPF BISHNU 02/26/2025 10:37 AM CDTRM LABORATORYSquamous Epithelials UrineFew(A)None Seen /LPF BISHNU 02/26/2025 10:37 AM CDTRM LABORATORYSpecimen (Source)Anatomical Location / LateralityCollection Method / VolumeCollection TimeReceived TimeUrineURINE SPECIMEN OBTAINED BY CLEAN CATCH PROCEDURE / UnknownNon-blood Collection / Acvflwv9102/26/2025 10:32 AM CDT1 10:32 AM CDT Narrative Authorizing ProviderResult TypeResult StatusRebecca A Jungers PA-CLAB - URINE ORDERABLESFinal ResultPerforming OrganizationAddressCity/State/ZIP CodePhone Number LABORATORY [facility] [address] [facility] (no room number, 1st floor [facility] [place] [address], [place] * (ABNORMAL) Urine Culture (02/26/2025 10:32 AM CDT)ComponentValueRef RangeTest MethodAnalysis TimePerformed AtPathologist SignatureCulture>100,000 CFU/mL Escherichia coli(A)02/28/2025 12:11 AM CDTUU IDD LABORATORYSpecimen (Source) Anatomical Location / LateralityCollection Method / VolumeCollection Time Received TimeUrineURINE SPECIMEN OBTAINED BY CLEAN CATCH PROCEDURE / Unknown Non-blood Collection / Layynnf2902/26/2025 10:32 AM CDT1 10:35 AM CDT Narrative [...] OrganizationAddressCity/State/ZIP Code Phone Number UU IDD LABORATORY [facility] Inf. Diseases Diag. Lab [address] [facility], [address] [place] [phone] * (ABNORMAL) Lipid panel reflex to direct LDL Fasting (02/26/2023 10:34 AM CDT) ComponentValueRef RangeTest MethodAnalysis TimePerformed AtPathologist SxhggrvvtIcuykkacfme658(H)<200 mg/dL02/26/2023 6:25 PM CDTUU LABORATORY Rmjpiacaqrhee317(H)<150 mg/dL02/26/2023 6:25 PM CDTUU LABORATORYDirect Measure HDL36(L)>=50 mg/dL02/26/2023 6:25 PM CDTUU LABORATORYLDL Cholesterol Ooecaatjvh920(H)<=100 mg/dL02/26/2023 6:25 PM CDTUU LABORATORYNon HDL Hfnjninbrie264(H)<130 mg/dL02/26/2023 6:25 PM CDTUU LABORATORYSpecimen (Source)Anatomical Location / LateralityCollection Method / VolumeCollection TimeReceived TimeBloodBLOOD SPECIMEN / UnknownVenipuncture / Euxukkt4102/26/2023 10:34 AM CDT1 10:34 AM CDT Narrative [...] BLOOD ORDERABLESFinal ResultPerforming OrganizationAddressCity/State/ZIP CodePhone Number LABORATORY [facility] Lab [address] [facility], [address] [phone] [phone] * (ABNORMAL) Glucose (02/26/2023 10:34 AM CDT)ComponentValueRef RangeTest Method Analysis TimePerformed AtPathologist LunvpdskfFbvpmsc409(H)70 - 99 mg/dL 02/26/2023 6:25 PM CDTUU LABORATORYPatient Fasting > 8hrs?Yes02/26/2023 6:25 PM CDTUU LABORATORYSpecimen (Source)Anatomical Location / LateralityCollection Method / VolumeCollection TimeReceived TimeBloodBLOOD SPECIMEN / Unknown Venipuncture / Lunmbpa8402/26/2023 10:34 AM CDT1 10:34 AM CDT Narrative Authorizing ProviderResult TypeResult StatusTammy Trinh PA-CLAB - BLOOD ORDERABLESFinal ResultPerforming OrganizationAddressCity/State/ZIP CodePhone Number UU LABORATORY [facility] [place] [facility] [address] [facility], [address] [place] [address], [place] [phone] * ThinPrep Pap and HPV (mRNa E6/E7) {HPV always run}(Paracosm) (11/13/2021 10:06 AM CDT)ComponentValueRef RangeTest MethodAnalysis TimePerformed AtPathologist SignatureClinical HistorySEE COMMENTQUEST DIAGNOSTICS-WOODALEComment:SCREENING LMPSEE COMMENTQUEST DIAGNOSTICS-WOODALEComment:PMLast Pap DiagnosisSEE COMMENT [facility]-WOODALEComment:[id number] Bx DxSEE COMMENTQUEST DIAGNOSTICS-WOODALEComment:[id number] COMMENTQUEST DIAGNOSTICS-[facility] Planet[facility] Comment:CervixStatement of AdequacySEE COMMENTQUEST DIAGNO[facility]ALE Comment: Satisfactory for evaluation. Endocervical/transformation zone component present. Descriptive DiagnosisSEE COMMENTQUEST DIAGNOSTICS-Able PlanetALEComment:Negative for intraepithelial lesion or malignancy.Inspector Clip On Sunglasses:SEE COMMENTQUEST DIAGNOSTICS-WOODALEComment: SXO CT(ASCP) CT Screening location: [address] ??[address] CommentSEE COMMENTQUEST DIAGNOSTICS-WOODALEComment: EXPLANATORY NOTE: The Pap [...] HPV mRNA E6/E7Not DetectedNot DetectedQUEST DIAGNOSTICS-WOODALEComment: Methodology: Experienced Truck Driver-Mediated Amplification This assay detects E6/E7 viral messenger RNA (mRNA) from 14 high-risk HPV types (16,18,31,33,35,39,45,51,52,56,58,59,66,68). Cervical sources are required for HPV testing. If a vaginal source from a patient who has had a total hysterectomy with removal of cervix was submitted, please contact the testing laboratory for alternative testing options. For additional information, please refer to http://education.BuyerMLS/faq/YIX413w9 (This link if provided for information/ educational purposes only.) Specimen (Source)Anatomical Location / LateralityCollection Method / Volume Collection TimeReceived JcgdUygplhie42/18/2022 10:06 AM CDT11/14/2021 6:34 AM CDT Narrative Resulting Agency Comment Performing Organization Information: ? [place] ? [facility] ? [address] [place] [address] ? Renan Mathur Authorizing ProviderResult TypeResult StatusRenetta Womack MDLAB - NON-BEAKER NON-BLOODFinal ResultPerforming OrganizationAddressCity/State/ZIP CodePhone Number [facility] [address] [place], [place] [address] [phone] * COLONOSCOPY - HIM SCAN (12/21/2019 12:00 AM CDT)Specimen (Source)Anatomical Location / LateralityCollection Method / VolumeCollection TimeReceived Time 12/21/2019 Narrative Authorizing ProviderResult TypeResult StatusProvider OutsidePROCEDURESFinal Result from Last 3 Months or Most Recently Relevant to Health Maintenance Insurance Care Teams Team MemberRelationshipSpecialtyStart DateEnd Date Tammy Trinh PA-C [address] [place] [address] [facility] - [facility] Tammy Trinh PA-C [address] [place] [address] Assigned PCP07/07/22 Tino Vincent MD [address] [place] [address] FNNeqzexzshhs94/31/23
--- OUTSIDE RECORDS SUMMARY | 2025-04-25 03:02 | XMS_ITS | Clinical Summary ---
Author Organization [email or web address] [facility] Address [address] [place] [address] Care Team Providers Care Manager Department Name Role Phone Rima Fajardo Primary Care Provider [phone] Immunizations ImmunizationAdministration DatesNext DueCOVID-19 vaccine ([employer] 30mcg/0.3mL) SHERWIN HWANG09/27/2020,08/19/2020 Social History Tobacco UseTypesPacks/DayYears UsedDateSmoking Tobacco: Never Assessed CommentsUnknownSex and Gender InformationValueDate RecordedSex Assigned at Not on fileLegal OxlGfhpvp80/14/2013 6:28 AM CSTGender IdentityNot on fileSexual OrientationNot on file Plan of Treatment Not on file Care Teams Team MemberRelationshipSpecialtyStart DateEnd Date Rima Fajardo PCP - GeneralFamily Practice09/09/20
--- OUTSIDE RECORDS SUMMARY | 2025-04-25 03:02 | XMS_ITS | Encounter Summary ---
Author Organization [facility] Address [address] [place] [address]. [place] [address] Care Team Providers Care Patternmaker Metal Bench Name Role Phone Tammy Trinh PA-C Unavailable [phone] Tammy Trinh PA-C Primary Care Provider [phone] Tino Vincent MD Unavailable Encounter Details DateTypeDepartmentCare Team (Latest Contact Info)Nqwmacivuci70/02/2025Travel Social History Tobacco UseTypesPacks/DayYears UsedDateSmoking Tobacco: NeverPassive Smoke Exposure: NeverSmokeless Tobacco: NeverAlcohol UseStandard Drinks/WeekComments Yes0 (1 standard drink = 0.6 oz pure alcohol)1-2 drinks a week.PHQ-2AnswerDate RecordedPHQ-2 Dzyac05605/31/2024[facility] [place] of Occupational Health - Occupational Stress QuestionnaireAnswerDate RecordedDo you feel stress - tense, restless, nervous, or anxious, or unable to sleep at night because yourmind is troubled all the time - these days?Only a abcuwb7203/30/2025Exercise Vital Sign AnswerDate RecordedOn average, how many days per week do you engage in moderate to strenuous exercise (like a brisk walk)?2 days03/30/2025On average, how many minutes do you engage in exercise at this level?10 min03/30/2025dolescent EducationAnswerDate RecordedGetting School Help NeededNot on file02/10/2023 Social ConnectionsAnswerDate RecordedHow often do you feel lonely or isolated from those around you?Rpggnphsy75/02/2025Food InsecurityAnswerDate Recorded Within the past 12 months, [...] in an abandoned building, in an overnight snf, or couch-surfing.)Yes03/30/2025 Are you worried about losing [...] InformationValueDate RecordedSex Assigned at BirthNot on fileLegal FdaEutjfn91/04/2012 3:09 AM SOIL CHEMIST Gender IdentityNot on fileSexual OrientationNot on fileOccupationIndustryJob Start DateJob End DateProject ManagerNot on fileNot on fileNot on filedocumented as of this encounter Plan of Treatment DateTypeDepartmentCare Team (Latest Contact Info)Jszeyngdtvr19/16/2026 7:30 AM CSTOffice Visit [facility] [address] [place] [address] Tammy Trinh PA-C [address] [place] [address] documented as of this encounter Visit Diagnoses Not on filedocumented in this encounter Additional Health Concerns AssessmentNoted TimePHQ-9 Depression Total Score: 9:57 AM SOIL CHEMIST documented as of this encounter Care Teams Team MemberRelationshipSpecialtyStart DateEnd Date Tammy Trinh PA-C [address] [place] [address] PCP - GeneralFamily Medicine08/08/22 Tammy Trinh PA-C [address] [place] [address] Assigned PCP07/07/22 Tino Vincent MD [address] [place] [address] NRYrejjdlakzt61/31/23documented as of this encounter
== END 2025-04-24 19:25 | disposition home or self-care (01) ==
LOC: ED 04-25 03:00
PROVIDERS: Emergency Provider Emergency Medicine; PCP Physician Assistant Medical
DX: K08.89 Other specified disorders of teeth and supporting structures (principal); R68.84 Jaw pain
CPT/HCPCS: 99282; 99283; 99284